=== PATIENT | female | born 1965 | race Caucasian/White ===

== ENCOUNTER → 2017-09-05 14:43 | Outpatient (CLI) | payer BC | END | disposition home or self-care (01) | LOC: D.MAMMO 08:15 | DX: Z12.31 Encounter for screening mammogram for malignant neoplasm of breast (principal) ==

== ENCOUNTER → 2017-10-06 07:37 | Outpatient (CLI) | payer OTHER | END | disposition home or self-care (01) | LOC: D.RAD 07:37 | DX: K52.9 Noninfective gastroenteritis and colitis, unspecified (principal) ==

== ENCOUNTER 2020-02-03 07:01 | Day surgery (SDC) | payer BC ==
[2020-01-31 10:18] LABS: HEMATOCRIT 42.9 % (36.0-48.0); HEMOGLOBIN 14.2 g/dL (12-16); MCH 28.7 pg (26.0-34.0); MCHC 33.1 g/dL (31.0-37.0); MCV 86.8 fL (80.0-100.0); MEAN PLATELET VOLUME 11.1 fL (7.4-10.4); RBC 4.94 10x6/uL (4.00-5.40); RDW 13.2 % (11.5-14.5); WBC 8.9 10x3/uL (4.8-10.8)
[~2020-02-03] VITALS: Ht 167.6 cm; Wt 65.8 kg
[2020-02-03 06:14] VITALS: BP 141/69; Ht 167.6 cm; Wt 65.8 kg
[~2020-02-03 07:01] MED LIST: CELEXA40 MG PO; CYCLOBENZAPRINE PO; FOLIC ACID1 MG PO; LEVO-T100 MCG PO; LIPITOR10 MG PO; LISINOPRIL20 MG PO; METHOTREXATE2.5 MG PO; TYLENOL W/CODEI1 TAB PO; ZYRTEC10 MG PO
[2020-02-03] MEDS ORDERED: HYDROCODON-ACE1 EA10 PO (07:29)
--- NOTE | 2020-02-07 09:46 | OP ---
PATIENT NAME: CORKY OBANDO MEDICAL RECORD: [id number] :69 LOCATION:D.OPS ADMISSION DATE: SURGEON: WALDO GA MD DATE OF OPERATION: 02/03/2020 PREOPERATIVE DIAGNOSIS: Carpal tunnel syndrome of the right wrist. POSTOPERATIVE DIAGNOSIS: Carpal tunnel syndrome of the right wrist. PROCEDURE: Right carpal tunnel release. SURGEON: Waldo Ga MD ANESTHESIA: General. INTRAOPERATIVE COMPLICATIONS: None. SUMMARY OF PATHOLOGIC FINDINGS: The patient was indeed found to have severe carpal tunnel syndrome with a very tight transverse carpal ligament consistent with the preoperative diagnosis. OPERATIVE SUMMARY IN DETAIL: After obtaining the appropriate preoperative orthopedic surgery consent as well as anesthetic consultation, evaluation and clearance, the patient was brought to the operating room and placed on the operating table in supine position. After adequate general laryngeal mask airway was administered, the patient's right upper extremity was prepared with a tourniquet about the proximal aspect, right upper extremity was then prepped and draped in routine sterile fashion. The arm was elevated, exsanguinated, and tourniquet was inflated to 250 mmHg. Midline incision was made in the mid palmar line in line with the fourth metacarpal ray taken down to the level of the distal aspect of the transverse carpal ligament. A small incision was then made and then under direct visualization and median nerve protection, the transverse carpal ligament was released in its entirety. Having completed this, the wound was copiously irrigated and closed with 4-0 Prolene. The area was locally anesthetized with 0.25% Marcaine plain. Sterile dressings were applied. Tourniquet was deflated. The patient was awakened, taken to the recovery room in stable condition. All final needle and sponge counts were correct. TRANSINT:[id number] Voice Confirmation ID: [id number] DOCUMENT ID: [id number] WALDO GA MD at 0946 CC: [id number] DICTATION DATE: 02/07/20 0557 SUBSTATION TECHNICIAN: 02/07/20 0827 [facility] 02/03/20 [id number] [place] [address]
== END 2020-02-03 09:15 | disposition home or self-care (01) ==
LOC: D.OPS 07:01 → D.PAN 07:30 → D.OPS 09:15 → D.PAN 16:30 → D.OPS 16:30
PROVIDERS: Anesthesiology; ATTEND Orthopaedic Surgery
DX: G56.01 Carpal tunnel syndrome, right upper limb (principal); M25.531 Pain in right wrist; M79.641 Pain in right hand

== ENCOUNTER → 2021-03-09 13:23 | Outpatient (CLI) | payer BC ==
[2020-02-03 06:14] VITALS: BMI 23.4
[~2021-03-09 13:23] MED LIST changes: +HYDROCODON-ACE1 EA10 PO
[2021-03-09 14:08] LABS: BASOPHILS 0.3 % (0-2); HEMATOCRIT 41.8 % (36.0-48.0); HEMOGLOBIN 13.9 g/dL (12-16); IMMATURE GRANULOCYTES 0.1 % (0-5); LYMPHOCYTE ABS# 2.99 10x3/uL (1.18-3.74); MCH 28.8 pg (26.0-34.0); MCHC 33.3 g/dL (31.0-37.0); MCV 86.7 fL (80.0-100.0); MEAN PLATELET VOLUME 11.3 fL (7.4-10.4); NEUTROPHIL ABS# 6.15 10x3/uL (1.56-6.13); NEUTROPHILS 59.6 % (40-80); PLATELET COUNT 243 10x3/uL (130-400); RBC 4.82 10x6/uL (4.00-5.40); WBC 10.3 10x3/uL (4.8-10.8)
[2021-03-09 14:17] LABS: ALBUMIN 3.8 g/dL (3.4-5.0); ALKALINE PHOSPHATASE 96 U/L (30-120); ALT (SGPT) 24 U/L (10-68); BILIRUBIN - TOTAL 0.32 mg/dL (0.2-1.3); CALC OSMOLALITY 274 mosm/kg (275-300); CALCIUM 8.7 mg/dL (8.5-10.1); CARBON DIOXIDE 27.7 mmol/L (21.0-32.0); CHLORIDE - SERUM 101 mmol/L (98-107); CHOLESTEROL, TOTAL 152 mg/dL (0-200); CREATININE - SERUM 0.6 mg/dL (0.6-1.3); GLUCOSE 83 mg/dL (74-106); HDL CHOLESTEROL 38 mg/dL (32-96); LDL CHOLESTEROL 69 mg/dL (0-100); LDL-HDL RATIO 1.8 ratio (1.5-3.5); POTASSIUM - SERUM 3.9 mmol/L (3.5-5.1); PROTEIN - SERUM 7.3 g/dL (6.4-8.2); SODIUM 138 mmol/L (136-145); T4 THYROXIN - FREE 0.74 ng/dL (0.76-1.46); THYROID STIMULATING HORMONE 6.55 uIU/mL (0.36-3.74); TRIGLYCERIDE 228 mg/dL (30-200); UREA NITROGEN 13 mg/dL (7-18); eGFR NON AFRICAN AMERICAN > 90 mL/min (90-120)
== END | disposition home or self-care (01) ==
LOC: D.LAB 13:23
PROVIDERS: ATTEND Family Medicine
DX: I10 Essential (primary) hypertension (principal)

== ENCOUNTER 2021-04-01 05:27 | Day surgery (SDC) | payer BC ==
[2021-03-30 10:09] LABS: HEMATOCRIT 42.5 % (36.0-48.0); HEMOGLOBIN 14.2 g/dL (12-16); MCH 28.9 pg (26.0-34.0); MCHC 33.4 g/dL (31.0-37.0); MCV 86.4 fL (80.0-100.0); MEAN PLATELET VOLUME 10.6 fL (7.4-10.4); RBC 4.92 10x6/uL (4.00-5.40); WBC 8.8 10x3/uL (4.8-10.8)
[2021-03-30 10:32] LABS: CALC OSMOLALITY 276 mosm/kg (275-300); CARBON DIOXIDE 29.9 mmol/L (21.0-32.0); CHLORIDE - SERUM 104 mmol/L (98-107); CREATININE - SERUM 0.7 mg/dL (0.6-1.3); GLUCOSE 87 mg/dL (74-106); POTASSIUM - SERUM 4.6 mmol/L (3.5-5.1); SODIUM 140 mmol/L (136-145); UREA NITROGEN 10 mg/dL (7-18); eGFR NON AFRICAN AMERICAN > 90 mL/min (90-120)
[~2021-04-01] VITALS: Ht 167.6 cm; Wt 65.3 kg
[2021-04-01 05:57] VITALS: BP 146/75; Ht 167.6 cm; Wt 65.3 kg
[2021-04-01] MEDS ORDERED: TRAZODONE HCL150 MG PO (06:01)
--- NOTE | 2021-04-01 08:37 | NUR ---
OPA IN AIRWAY ON ADMIT
--- NOTE | 2021-04-01 10:04 | NUR ---
DC INSTRUCTIONS GIVEN TO PT/FAMILY. STATE UNDERSTANDING. DC'D IV CATH FULLY INTACT. WILL DC SHORTLY.
--- NOTE | 2021-04-01 10:07 | NUR ---
PT LEFT UNIT VIA WC AT 1009
--- NOTE | 2021-04-02 14:53 | OP ---
PATIENT NAME: CORKY WEAVER MEDICAL RECORD: [id number] :69 LOCATION:[facility] ADMISSION DATE: SURGEON: XI NEFF MD DATE OF OPERATION: 04/01/2021 PREOPERATIVE DIAGNOSIS: Left carpal tunnel syndrome. POSTOPERATIVE DIAGNOSIS: Left carpal tunnel syndrome. PROCEDURE PERFORMED: Left carpal tunnel release. INDICATIONS FOR THE PROCEDURE: Ms. Weaver is a 56-year-old female with history of left carpal tunnel syndrome. She has been having pain and numbness in the left hand and fingers, and is starting to have more weakness. She has history of right carpal tunnel release and has done well since that surgery and is now ready to proceed with surgery for the left hand. Risks, benefits and alternatives of surgery were discussed with the patient and consent was obtained. DESCRIPTION OF PROCEDURE: The patient was met in the holding area where her identity and confirmation of procedure was performed. The left upper extremity was marked and she was taken to the operating room where she was placed supine on the operating table. Anesthesia was administered. A tourniquet was applied to the left arm and left arm was prepped and draped in a sterile fashion. The patient received preoperative antibiotics and timeout was performed before initiating the case. On initiation of the case, the arm was exsanguinated and the tourniquet was raised. Total tourniquet time was 10 minutes. Incision was made over the palm in line with the fourth ray. We incised through the skin and subcutaneous tissues, dissected down to the transverse carpal ligament. The ligament was then incised and a freer was then inserted. We continued our release distally until the ligament was fully released. We then turned and released the remainder of the ligament proximally under direct visualization. There was significant synovitis throughout the carpal tunnel. The median nerve did appear somewhat flattened. The carpal tunnel was explored with no other abnormalities. The tourniquet was let down. Hemostasis was obtained. Soft tissues were infiltrated with 0.25% Marcaine with epinephrine. The incision was then closed with Prolene suture. A sterile dressing was applied. The patient was turned back over to anesthesia where she was awakened, extubated, and taken to recovery room in stable condition. POSTOPERATIVE PLAN: The patient is going to return home with her family today. She needs to avoid any strenuous physical activity with that left hand. We will see her back in clinic in 2 weeks. COMPLICATIONS: None. ESTIMATED BLOOD LOSS: 5 mL. ANESTHESIA: General LMA. TRANSINT:[id number] Voice Confirmation ID: [id number] DOCUMENT ID: [id number] OPERATIVE REPORT [id number] CORKY WEAVER,XI Holliday MD at 1453 CC: [id number] DICTATION DATE: 04/01/2132 MOLDER MACHINE: 04/01/21 0856 [facility] 04/01/[address] [address]
== END 2021-04-01 10:09 | disposition home or self-care (01) ==
LOC: D.OPS 05:27
PROVIDERS: Anesthesiology; ATTEND Orthopaedic Surgery
DX: G56.02 Carpal tunnel syndrome, left upper limb (principal)

== ENCOUNTER 2021-05-28 16:00 | Outpatient (CLI) | payer BC ==
[2021-04-01 05:57] VITALS: BMI 23.3
[~2021-05-28 16:00] MED LIST changes: +TRAZODONE HCL150 MG PO
== END 2021-05-28 23:59 | disposition home or self-care (01) ==
LOC: D.MAMMO 16:00
PROVIDERS: ATTEND Family Medicine
DX: Z12.31 Encounter for screening mammogram for malignant neoplasm of breast (principal)